=== PATIENT | female | born 1990 ===

== ENCOUNTER 2021-09-27 14:04 | Outpatient (CLI) | payer OTHER | END 2021-09-27 15:15 | disposition home or self-care (01) | LOC: PRENATAL 14:04 | PROVIDERS: ATTEND Obstetrics & Gynecology Maternal & Fetal Medicine | DX: O28.1 Abnormal biochemical finding on antenatal screening of mother (principal); Z36.0 Encounter for antenatal screening for chromosomal anomalies; Z3A.20 20 weeks gestation of pregnancy ==

== ENCOUNTER 2021-10-29 13:37 | Outpatient (CLI) | payer OTHER | END 2021-10-29 14:40 | disposition home or self-care (01) | LOC: PRENATAL 13:37 | PROVIDERS: ATTEND Obstetrics & Gynecology Maternal & Fetal Medicine | DX: O35.0XX0 Maternal care for (suspected) central nervous system malformation in fetus, not applicable or unspecified (principal); O35.3XX0 Maternal care for (suspected) damage to fetus from viral disease in mother, not applicable or unspecified; O28.1 Abnormal biochemical finding on antenatal screening of mother; Z3A.25 25 weeks gestation of pregnancy; Z88.8 Allergy status to other drugs, medicaments and biological substances ==